=== PATIENT | female | born 1990 | race Caucasian/White ===

== ENCOUNTER 2017-03-08 21:24 | Emergency (ER) | payer OTHER ==
[2017-03-09 00:04] VITALS: TEMP 97.9
--- NOTE | 2017-03-09 01:17 | ED.PDOC ---
History of Present Illness - General Chief Complaint: Back Pain or Injury Stated Complaint: back pain Time Seen by Provider: 03/09/17 01:09 Source: patient, RN notes reviewed, Vital Signs reviewed Exam Limitations: no limitations Additional Information: Pt states she thinks she over did it at work last night lifting things. She reports lower back pain - acute on chronic. She states she has been prescribed Ultram and [place] in the past for her pain. She initially stated her goal was to have her pain "go away". I told her we needed to focus on realistic goal focussing on maximizing ability to function, and that pain-free is not a realistic goal. She has no focal neuro deficits and no red flags. Myofascial component to pain given tenderness to superficial palpation of lower back in the skin/soft tissue. - History of Present Illness Timing/Duration: 24 hours Quality/Severity: moderate, dullness Back Pain Location: lumbar spine Back Pain Radiation: upper legs, lower legs Method of Injury/Prior Injury: twisted Improving Factors: rest Worsening Factors: movement Associated Symptoms: muscle spasms, lower back pain Allergies/Adverse Reactions: Allergies NO KNOWN ALLERGY Allergy (Verified 03/09/17 00:04) Home Medications: Ambulatory Orders Ferrous Sulfate [Feosol Tab] 325 mg PO QD 01/18/15 Montelukast [Singulair] 10 mg PO DAILY 01/18/15 Acetaminophen W/ Codeine [Tylenol W/ CODEINE #3] 1 - 2 ea PO Q8H PRN #16 Ibuprofen [Motrin Tab] 600 mg PO Q8H #20 tab 01/19/15 Review of Systems - Review of Systems Constitutional: States: no symptoms reported EENTM: States: no symptoms reported Respiratory: States: no symptoms reported Cardiology: States: no symptoms reported Gastrointestinal/Abdominal: States: no symptoms reported Genitourinary: States: no symptoms reported Musculoskeletal: States: see HPI, back pain Skin: States: no symptoms reported Neurological: States: no symptoms reported Endocrine: States: no symptoms reported Hematologic/Lymphatic: States: no symptoms reported Past Medical History (General) - Patient Medical History Hx of COPD: No Hx Congestive Heart Failure: No Hx Hypertension: No Hx Diabetes: No Hx Renal Disease: No - Vaccination History Hx Tetanus, Diphtheria Vaccination: No Hx Influenza Vaccination: No Hx Pneumococcal Vaccination: No Immunizations Up to Date: No - Social History Hx Tobacco Use: Yes Hx Alcohol Use: No Hx Substance Use: No - Female History Patient is a Female of Child Bearing Age (10 -59 yrs old): Yes Hx Last Menstrual Period: 04/28/14 Expected Date of Delivery:: 01/23/15 Family Medical History - Family History Mother Age (years): 43 Living Status: Still Living Hx Family Asthma: Yes Hx Family Congestive Heart Failure: Yes Hx Family Hypertension: Yes Hx Family Stroke: Yes Hx Cardiac Disease: Yes Hx Family Diabetes: No Hx Family Cancer: Yes Physical Exam - Physical Exam General Appearance: Alert, Comfortable, No apparent distress - at rest - sitting style., Well Developed, Well Groomed, Well Hydrated, Well Nourished Eyes, Ears, Nose, Throat Exam: PERRL/EOMI, normal ENT inspection, pharynx normal Neck Exam: non-tender, full range of motion, normal alignment Cardiovascular/Respiratory: regular rate, rhythm, normal peripheral pulses, no respiratory distress Gastrointestinal/Abdominal: non tender, soft Back Exam: normal inspection, muscle spasm - in lumbar region Extremity Exam: no evidence of injury 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 Copy, Patient Portal Self Enrollment Instructions: DI for Low Back Pain Referrals: SANDRA CAMEJO [Primary Care Provider] - 1-2 Weeks Home Medications: Ambulatory Orders Ferrous Sulfate [Feosol Tab] 325 mg PO QD 01/18/15 Montelukast [Singulair] 10 mg PO DAILY 01/18/15 Acetaminophen W/ Codeine [Tylenol W/ CODEINE #3] 1 - 2 ea PO Q8H PRN #16 Ibuprofen [Motrin Tab] 600 mg PO Q8H #20 tab 01/19/15 Additional Instructions: Follow-up with Back Pain Specialist for ongoing evaluation and management. Work excuse for 2 days. Continue massage, heating pad/warm shower, and gentle range of motion to help with muscle spasm component of pain.
[2017-03-09] MEDS ORDERED: KETOROLAC TROMETHAMINE INJ 60 MG/2 ML VIAL IM ONE (01:20)
[2017-03-09] MEDS ORDERED: ACETAMINOPHEN W/COD #3 TAB (ER Disp) PO PRN (01:21)
[2017-03-09 02:04] VITALS: BP 129/79; O2SAT 100
== END 2017-03-09 02:04 | disposition home or self-care (01) ==
LOC: ER 21:24
DX: M54.5 Low back pain (principal); Z87.891 Personal history of nicotine dependence

== ENCOUNTER 2020-08-12 09:40 | Emergency (ER) | payer OTHER, SELFPAY ==
[2020-08-12] MEDS ORDERED: MORPHINE SULFATE INJ 10 MG/ML VIAL IV ONE ×2 (09:53→10:08)
[2020-08-12] MEDS ORDERED: KETOROLAC TROMETHAMINE INJ 60 MG/2 ML VIAL IM ONE (09:53)
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
--- NOTE | 2020-08-12 10:38 | RAD ---
EXAM: X-RAY, three views of the lumbar spine HISTORY: low back pain. COMPARISON: None. FINDINGS: Lumbar vertebra: 5. Alignment: Normal. Bones: No acute fracture. Discs: Normal disc spaces. Facets: Suspect bilateral pars defects at L5-S1. IMPRESSION: No acute fracture. Suspected pars defects at L5-S1. Electronically signed by: David Kaur MD 08/12/2020 10:37 AM [facility]
[2020-08-12 11:31] VITALS: BP 122/81; TEMP 97.9; O2SAT 100
== END 2020-08-12 11:25 | disposition home or self-care (01) ==
LOC: ER 09:40
DX: M43.07 Spondylolysis, lumbosacral region (principal); M54.5 Low back pain; Z87.828 Personal history of other (healed) physical injury and trauma; Z87.891 Personal history of nicotine dependence
CPT/HCPCS: 72100; J1885; J2270